=== PATIENT | female | born 1965 | race Caucasian/White ===

== ENCOUNTER → 2019-05-14 08:30 | Outpatient (CLI) | payer OTHER, SELFPAY ==
--- NOTE | 2019-05-14 | DI.MG.S_ITS ---
BILATERAL DIGITAL SCREENING MAMMOGRAM 3D/2D WITH CAD: 05/14/2019 CLINICAL: Routine screening. Comparison is made to exams dated: 06/04/2014 mammogram, 10/05/2016 mammogram, and 05/02/2018 mammogram - [facility]. There are scattered fibroglandular elements in both breasts. Current study was also evaluated with a Computer Aided Detection (CAD) system. No significant masses, calcifications, or other findings are seen in either breast. There has been no significant interval change. IMPRESSION: NEGATIVE There is no mammographic evidence of malignancy. A 1 year screening mammogram is recommended. This exam was interpreted at Station ID: [id number]. NOTE: For mammograms, a report in lay terms will be sent to the patient. Approximately 15% of breast malignancies will not be visualized mammographically. In the management of a palpable breast mass, a negative mammogram must not discourage biopsy of a clinically suspicious lesion. Electronically Signed By: Rene steward/yovany:05/14/2019 13:12:19 letter sent: Normal Exam ACR BI-RADS Category 1: Negative [id number]
== END ==
PROVIDERS: PCP Family Medicine; Visit Provider Family Medicine
DX: Z12.31 Encounter for screening mammogram for malignant neoplasm of breast (principal)
CPT/HCPCS: 77063; 77067

== ENCOUNTER 2020-04-27 18:42 | Emergency (ER) | payer OTHER, SELFPAY ==
[2020-04-27 18:45] VITALS: BP 144/89; PULSE 77; RESP 20; TEMP 36.7; O2SAT 100
--- NOTE | 2020-04-27 18:49 | DI.RAD.S_ITS ---
PROCEDURE: XR ANKLE LT MIN 3V INDICATIONS: crush injury lt ankle/foot TECHNIQUE: 3 views of the ankle were acquired. COMPARISON: [facility], CR, XR FOOT LT MIN 3V, 04/27/2020, 18:39. FINDINGS: Bones: No fractures or dislocations. Postsurgical changes with fusion of talus and navicula. Ankle mortise is normally aligned. No suspicious bony lesions. Soft tissues: No tibiotalar joint effusion. Achilles tendon appears normal. There is a metallic artifact projecting to the heel on the lateral view, which appears outside of the left foot on frontal and oblique views. IMPRESSION: No definitive fractures. Postsurgical changes are noted. If clinical symptoms persist or clinical suspicion for pathology is high, a repeat examination in 7-10 days, or advanced imaging such as CT or MRI is suggested for further evaluation. Dictated by: Ely Hoffman M.D. on 04/27/2020 at 19:32 Approved by: Ely Hoffman M.D. on 04/27/2020 at 19:35
--- NOTE | 2020-04-27 18:49 | DI.RAD.S_ITS ---
PROCEDURE: XR FOOT LT MIN 3V INDICATIONS: crush injury lt ankle/foot TECHNIQUE: 3 views of the foot were acquired. COMPARISON: [facility], CR, XR ANKLE LT MIN 3V, 04/27/2020, 18:39. FINDINGS: Bones: No fractures or dislocations. No suspicious bony lesions. There is fusion of the talonavicular joint. There is mild degenerative joint disease at the 1st metatarsophalangeal joint. Soft tissues: No tibiotalar joint effusion. Achilles tendon appears normal. IMPRESSION: No fractures. Postsurgical changes are noted. If clinical symptoms persist or clinical suspicion for pathology is high, a repeat examination in 7-10 days, or advanced imaging such as CT or MRI is suggested for further evaluation. Dictated by: Ely Hoffman M.D. on 04/27/2020 at 19:35 Approved by: Ely Hoffman M.D. on 04/27/2020 at 19:36
[2020-04-27] MEDS: TET,DIPH,PERTUSS(ACELL),VAC/PF 0.5 ML SYRINGE IM (20:31)
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
== END 2020-04-27 20:34 | disposition home or self-care (01) ==
PROVIDERS: Emergency Provider Nurse Practitioner Family; PCP Family Medicine
DX: S96.912A Strain of unspecified muscle and tendon at ankle and foot level, left foot, initial encounter (principal); Y99.0 Civilian activity done for income or pay; Z23 Encounter for immunization
CPT/HCPCS: 73610; 73630; 90471; 99283; 99284; 90715

== ENCOUNTER → 2020-10-06 14:57 | Outpatient (CLI) | payer OTHER, SELFPAY ==
--- NOTE | 2020-10-06 15:00 | DI.ECHO.S_ITS ---
[facility]---------+ [facility] +---------+ : : [address] : : : : [id number] : : : : Phone: [phone]+ Echocardiogram Report + + :Name: SHANNON MCKINNEY Study Date: 10/06/2020 Height: 68.5 in: :[facility] ReadingLocation: Weight: 181 lb : : Gender: Female BSA: 2.0 m2 : :: 1965 Age: 54 yrs BP: 129/86 mmHg: :Reason For Study: CARDIAC MURMUR : :Ordering Physician: АЛЕКСАНДР, : :JT DUEÑAS Performed By: Deanna Chandler : :Referring: JT MONTES MD : + + Interpretation Summary The left ventricle is normal in size and wall thickness. Left ventricular ejection fraction is estimated to be 65 +/- 5%. There are no focal wall motion abnormalities. The right ventricle is normal in size and function. No significant valvular pathology seen. The IVC is of normal diameter and collapses greater than 50% with a sniff. This suggests a low right atrial pressure of 3 mm Hg. Procedure: A two-dimensional transthoracic echocardiogram with color flow and Doppler was performed. The study quality was technically adequate. The patient had an echocardiogram, but there is no comparison study available. Patient had previous echo at [facility] 11/03/2011. Patient brought in paper copy showing EF of 60% with Trace MR, TR, and AI. Non-discrete nodular thickening of non-coronary cusp. Remaining chambers and valves are normal. The patient was in sinus rhythm with heart rates between 52-69 bpm during the exam. Left Ventricle: The left ventricle is normal in size and wall thickness. There is no thrombus. Left ventricular ejection fraction is estimated to be 65 +/- 5%. There are no focal wall motion abnormalities. Diastolic parameters suggest a relaxation abnormality of the left ventricle, consistent with probable normal filling pressures. Right Ventricle: The right ventricle is normal in size and function. Atria: Both atria are normal in size. There is no Doppler evidence for an interatrial shunt. Mitral Valve: The mitral valve leaflets are slightly calcified. There is trace mitral regurgitation. Aortic Valve: The aortic valve is trileaflet. The aortic valve opens well. There is mild aortic valve sclerosis. Mild nodular thickening of all the coronary cusps along the coaptation point. There is no aortic valve stenosis. No aortic regurgitation is present. Tricuspid Valve: The tricuspid valve is normal in structure and function. There is trace tricuspid regurgitation. Pulmonary artery pressures cannot be estimated because of the lack of a measurable TR jet velocity but the IVC suggests a CVP of around 3 mmHg. Pulmonic Valve: The pulmonic valve leaflets are thin and pliable; valve motion is normal. There is a trace or physiologic amount of pulmonic regurgitation. Great Vessels: The aortic root is normal size. The ascending aorta could not be visualized. The IVC is of normal diameter and collapses greater than 50% with a sniff. This suggests a low right atrial pressure of 3 mm Hg. Pericardium/ Pleura There is no pericardial effusion. There is no pleural effusion. MMode/2D Measurements & Calculations LVIDd: 4.4 cm LVOT diam: 2.0 cm LVIDs: 2.6 cm Ao root diam: 3.0 cm FS: 41.4 % Ao Arch Diam (Prox Trans): 2.5 cm EPSS: 0.38 cm IVSd: 0.81 cm LVPWd: 0.84 cm LV robles. diameter/BSA (cm/m^2): 2.2 LV sys. diameter/BSA (cm/m^2): 1.3 LA A2 area: 21.6 cm2 RA long axis: 4.8 cm LA A4 area: 12.7 cm2 RA area: 13.8 cm2 LA length (vol): 4.3 cm RA vol: 33.6 ml LA vol: 54.8 ml RA : 17.0 ml/m2 LA vol index: 27.8 ml/m2 IVC diam: 1.5 cm RVD1 (basal): 3.2 cm TAPSE: 2.2 cm Doppler Measurements & Calculations Ao V2 max: 129.0 cm/sec LVOT Max Lino: 137.9 cm/sec Ao V2 mean: 94.5 cm/sec LV V1 max P.6 mmHg Ao max P.7 mmHg LV V1 VTI: 29.1 cm Ao mean P.9 mmHg MARY(I,D): 3.2 cm2 Ao V2 VTI: 27.3 cm MARY(V,D): 3.2 cm2 sev ratio: 1.1 MARY indexed to BSA (cm^2/m^2): 1.6 MV E max lino: 58.5 cm/sec PA V2 max: 108.8 cm/sec MV A max lino: 77.8 cm/sec PA V2 mean: 74.5 cm/sec MV E/A: 0.75 PA mean P.5 mmHg Med Peak E' Lino: 10.5 cm/sec PA pr(Accel): 15.6 mmHg E/E' med: 5.6 Lat Peak E' Lino: 14.1 cm/sec E/E' lat: 4.1 E/e' average: 4.9 MV dec time: 0.29 sec SV(LVOT): 87.8 ml Reading Physician:09:41 AM
== END ==
PROVIDERS: PCP Family Medicine; Referring Provider Family Medicine; Visit Provider Family Medicine
DX: R01.1 Cardiac murmur, unspecified (principal)
CPT/HCPCS: 93306

== ENCOUNTER → 2020-10-15 08:30 | Outpatient (CLI) | payer OTHER, SELFPAY ==
--- NOTE | 2020-10-15 | DI.MG.S_ITS ---
BILATERAL DIGITAL SCREENING MAMMOGRAM 3D/2D WITH CAD: 10/15/2020 CLINICAL: Routine screening. Comparison is made to exams dated: 05/14/2019 mammogram - [facility], 05/02/2018 mammogram, and 10/05/2016 mammogram - [facility]. There are scattered fibroglandular elements in both breasts. Current study was also evaluated with a Computer Aided Detection (CAD) system. No significant masses, calcifications, or other findings are seen in either breast. There has been no significant interval change. IMPRESSION: NEGATIVE There is no mammographic evidence of malignancy. A 1 year screening mammogram is recommended. This exam was interpreted at Station ID: [id number]. NOTE: For mammograms, a report in lay terms will be sent to the patient. Approximately 15% of breast malignancies will not be visualized mammographically. In the management of a palpable breast mass, a negative mammogram must not discourage biopsy of a clinically suspicious lesion. Electronically Signed By: Uziel gold/yovany:10/15/2020 08:59:27 letter sent: Normal Exam ACR BI-RADS Category 1: Negative 3341F
== END ==
PROVIDERS: PCP Family Medicine; Referring Provider Family Medicine; Visit Provider Family Medicine
DX: Z12.31 Encounter for screening mammogram for malignant neoplasm of breast (principal)
CPT/HCPCS: 77063; 77067

== ENCOUNTER → 2024-09-23 08:28 | Outpatient (CLI) | payer OTHER, SELFPAY ==
--- NOTE | 2024-09-23 08:30 | DI.RAD.S_ITS ---
PROCEDURE: XR CHEST 2V INDICATIONS: COUGH TECHNIQUE: 2 views of the chest were acquired. COMPARISON: None. FINDINGS: Surgical changes and devices: None. Lungs and pleura: Lungs are clear. No pleural effusions or pneumothorax. Mediastinum: Mediastinal contours are normal. Heart size is normal. Bones and chest wall: No suspicious bony abnormalities. Soft tissues appear unremarkable. IMPRESSION: No acute cardiopulmonary abnormality is seen. Dictated by: George Leung M.D. on 09/23/2024 at 13:29 Approved by: George Leung M.D. on 09/23/2024 at 13:30
== END ==
PROVIDERS: PCP Family Medicine; Referring Provider Otolaryngology; Visit Provider Otolaryngology
DX: J32.4 Chronic pansinusitis (principal); R05.3 Chronic cough; R09.82 Postnasal drip
CPT/HCPCS: 71046

== ENCOUNTER → 2025-01-29 08:00 | Outpatient (CLI) | payer OTHER, SELFPAY ==
--- NOTE | 2025-01-29 08:01 | DI.ECHO.S_ITS ---
[facility] : : [address] : : [facility] : : [place], : : [place] [address] : : Phone: [phone] Echocardiogram Report + + :Name: SHANNON MCKINNEY Study Date: 01/29/2025 Height: 68 in : :[facility] ReadingLocation: Weight: 210 lb : : Gender: Female BSA: 2.1 m2 : :: 1965 Age: 59 yrs BP: 129/95 mmHg: :Reason For Study: MURMUR : :Ordering Physician: MERY, : :KEEGAN Performed By: Griffin Walton : :Referring: UNSPECIFIED : + + Interpretation Summary 1) Normal left ventricular thickness, size, wall motion, and systolic function (EF 60-65%). 2) Normal right ventricular size and function. 3) No significant valvular abnormalities. 4) Compared to the echo done 10/06/2200, no significant change. Procedure: A two-dimensional transthoracic echocardiogram with color flow and Doppler was performed. The study quality was technically good. Comparison is made with the echocardiogram of 10/06/2020. The patient was in normal sinus rhythm during the exam. Left Ventricle: The left ventricle is normal in size. There is normal left ventricular wall thickness. There is no ventricular septal defect visualized. The ejection fraction is estimated to be 60-65%. There are no focal wall motion abnormalities. Diastolic parameters suggest a relaxation abnormality of the left ventricle, consistent with probable normal filling pressures. Right Ventricle: The right ventricle is normal in size and function. Atria: The left atrial size is normal. Right atrial size is normal. There is no Doppler evidence for an interatrial shunt. Mitral Valve: The mitral valve leaflets appear normal. There is no evidence of stenosis, fluttering, or prolapse. There is trace mitral regurgitation. Aortic Valve: The aortic valve is trileaflet. The aortic valve is mildly calcified. The aortic valve opens well. There is no aortic valve stenosis. There is trace aortic regurgitation. Tricuspid Valve: The tricuspid valve leaflets are thin and pliable. No tricuspid regurgitation. Pulmonic Valve: The pulmonic valve is not well seen, but is grossly normal. There is no pulmonic valvular regurgitation. Great Vessels: The aortic root is normal size. The dimensions of the ascending aorta are normal. The pulmonary is not well visualized. The IVC is of normal diameter and collapses greater than 50% with a sniff. This suggests a low right atrial pressure of 3 mm Hg. Pericardium/ Pleura There is no pericardial effusion. MMode/2D Measurements & Calculations LVIDd: 4.2 cm AoV Openin.7 cm LVIDs: 2.5 cm LVOT diam: 2.0 cm IVSd: 1.0 cm Ao root diam: 3.2 cm LVPWd: 0.89 cm Ao Arch Diam (Prox Trans): 1.7 cm LV robles. diameter/BSA (cm/m^2): 2.0 LV sys. diameter/BSA (cm/m^2): 1.2 FS: 40.3 % EPSS: 0.52 cm LA A2 area: 21.2 cm2 RA long axis: 4.7 cm LA A4 area: 18.9 cm2 RA area: 11.7 cm2 LA length (vol): 4.8 cm RA vol: 24.7 ml LA vol: 70.3 ml RA : 11.8 ml/m2 LA vol index: 33.7 ml/m2 RVD1 (basal): 3.1 cm IVC diam: 1.2 cm RVD2 (mid): 2.5 cm TAPSE: 2.7 cm Doppler Measurements & Calculations Ao V2 max: 134.5 cm/sec LVOT Max Lino: 113.6 cm/sec Ao V2 mean: 99.2 cm/sec LV V1 max P.2 mmHg Ao V2 VTI: 29.4 cm LV V1 VTI: 25.0 cm Ao max P.2 mmHg Ao mean P.3 mmHg MARY(I,D): 2.7 cm2 MV E max lino: 70.0 cm/sec MARY(V,D): 2.7 cm2 MV A max lino: 87.1 cm/sec MARY indexed to BSA (cm^2/m^2): 1.3 MV E/A: 0.80 sev ratio: 0.85 Med Peak E' Lino: 6.4 cm/sec E/E' med: 11.0 Lat Peak E' Lino: 8.1 cm/sec E/E' lat: 8.7 E/e' average: 9.8 MV dec time: 0.25 sec PA V2 max: 106.3 cm/sec PA V2 mean: 76.7 cm/sec PA mean P.6 mmHg PA pr(Accel): 20.8 mmHg SV(LVOT): 79.4 ml Reading Physician:10:36 AM
== END ==
LOC: ECHO 08:01
PROVIDERS: PCP Family Medicine; Referring Provider Physician Assistant; Visit Provider Physician Assistant
DX: R01.1 Cardiac murmur, unspecified (principal)
CPT/HCPCS: 93306

== ENCOUNTER 2025-03-03 17:27 | Emergency (ER) | payer OTHER, SELFPAY ==
[2025-03-03 17:31] VITALS: BP 173/98; PULSE 89; RESP 16; TEMP 37.1; O2SAT 98; BMI 31.9
--- NOTE | 2025-03-03 18:58 | ED.BACK ---
HPI - Back Pain/Injury <Ori Luevano PA-C - Last Filed: 03/03/25 19:02> General Chief Complaint: Back Pain/Injury Stated Complaint: Back pain, 3 spinal cord compression Time Seen by Provider: 03/03/25 17:51 Source: patient History of Present Illness HPI Narrative: 59-year-old female with past medical history chronic back pain presents to the ED with an acute on chronic exacerbation of her back pain. No new trauma. No new symptoms other than exacerbation of pain. Patient has some baseline numbness and paresthesias which have not changed from prior. Patient is waiting to see her doctor at [facility] on 03/10/2025. Patient has had an MRI which shows multilevel degenerative changes of the lumbar spine and spinal stenosis. No urinary hesitancy. Patient also states that she was diagnosed with a UTI recently, for which she just picked up medications today. Related Data Home Medications ?Medication ?Instructions ?Recorded ?Confirmed baclofen 10 mg tablet 10 mg PO DAILY PRN Pain (Scale 07/15/18 02/05/23 Score 4-6) cyanocobalamin (vitamin B-12) 1,000 mcg PO DAILY 07/15/18 02/05/23 1,000 mcg tablet (Vitamin B-12) ergocalciferol (vitamin D2) 1,250 50,000 unit PO QWEEK 07/15/18 02/05/23 mcg (50,000 unit) capsule (Vitamin D2) esterified 1 tab PO DAILY 07/15/18 02/05/23 estrogens-methyltestosterone 0.625 mg-1.25 mg tablet ferrous sulfate 325 mg (65 mg 325 mg PO TID 07/15/18 02/05/23 iron) tablet fluticasone propionate 50 2 spray intranasal DAILY 07/15/18 02/05/23 mcg/actuation nasal spray,suspension (Flonase Allergy Relief) furosemide 20 mg tablet (Lasix) 20 mg PO DAILY 07/15/18 02/05/23 gabapentin 800 mg tablet 600 mg PO TID 07/15/18 02/05/23 hydrochlorothiazide 25 mg tablet 25 mg PO DAILY 07/15/18 02/05/23 levothyroxine 125 mcg tablet 125 mcg PO DAILY 07/15/18 02/05/23 (Synthroid) loratadine 10 mg tablet (Claritin) 10 mg PO DAILY 07/15/18 02/05/23 sucralfate 1 gram tablet 1 g PO PRN PRN Ulcer 07/15/18 02/05/23 zolmitriptan 2.5 mg tablet (Zomig) 2.5 mg PO Q2-4H PRN Migraine 07/15/18 02/05/23 Headache Previous Rx's ?Medication ?Instructions ?Recorded oxycodone-acetaminophen 5 mg-325 1 tab PO Q8H PRN pain 3 days #10 03/03/25 mg tablet (Percocet) tabs Allergies Allergy/AdvReac Type Severity Reaction Status Date / Time cephalexin (From Keflex) Allergy Intermediate Hypertensio Verified 03/03/25 17:31 n amoxicillin (From Augmentin) Allergy Rash Verified 03/03/25 17:31 clavulanic acid (From Allergy Rash Verified 03/03/25 17:31 Augmentin) Review of Systems <Ori Luevano PA-C - Last Filed: 03/03/25 19:02> Constitutional Constitutional: Denies chills, Denies fatigue, Denies fever(s), Denies frequent falls, Denies lethargy and Denies weakness Eyes Eyes: Denies change in vision, Denies eye discharge, Denies irritation and Denies loss of vision ENT Ears, Nose, Mouth, and Throat: Denies change in voice, Denies dizziness, Denies neck pain, Denies sore throat and Denies throat swelling Cardiovascular Cardiovascular: Denies chest pain, Denies irregular heart rhythm, Denies lightheadedness, Denies palpitations, Denies dyspnea, Denies dyspnea on exertion and Denies orthopnea Respiratory Respiratory: Denies cough, Denies dyspnea, Denies dyspnea on exertion and Denies wheezing Gastrointestinal Gastrointestinal: Denies abdominal pain, Denies change in bowel habits, Denies diarrhea, Denies nausea and Denies vomiting Musculoskeletal Musculoskeletal: Reports back pain, Denies neck pain and Denies numbness Integumentary/Breasts Skin/Breast: Denies pruritus, Denies erythema, Denies rash and Denies wounds Neurologic Neurologic: Denies behavioral changes, Denies confusion, Denies dizziness, Denies frequent falls, Denies loss of vision, Denies numbness and Denies weakness Psychiatric Psychiatric: Denies anxiety, Denies behavioral changes, Denies confusion, Denies depression, Denies homicidal ideation and Denies suicidal ideation Endocrine Endocrine: Denies fatigue, Denies flushing and Denies palpitations Hematologic/Lymphatic Hematologic/Lymphatic: Denies easy bruising Allergic/Immunologic Allergic/Immunologic: Denies urticaria, Denies throat swelling and Denies wheezing Patient History <Ori Luevano PA-C - Last Filed: 03/03/25 19:02> Medical History Hypertension Allergy Reactive airway disease Anemia Hypothyroidism Surgical History H/O foot surgery Social History Smoking Status: Never smoker Smoking Status: Never smoker Exam <Ori Luevano PA-C - Last Filed: 03/03/25 19:02> Narrative Exam Narrative: Const General:?cooperative, healthy appearing and comfortable HENMT Head:?normal to inspection Ears:?hearing grossly normal bilaterally Nose:?external nose normal Face and sinus:?normal facial exam and sinuses nontender Mouth:?oral mucosae normal Throat:?posterior oropharynx normal Eyes General:?appearance normal, both eyes and all related structures Neck Neck:?normal visual inspection and no lymphadenopathy noted Resp Effort & Inspection:?normal respiratory effort Auscultation:?clear to auscultation bilaterally Cardio Rate:?regular rate Rhythm:?regular rhythm Musculoskeletal No midline tenderness to palpation. No paraspinal tenderness to palpation. Gait is normal. Neurovascularly intact. Neuro General:?patient alert, patient awake and patient oriented x3 Initial Vital Signs Initial Vital Signs: Vital Signs Temperature 98.7 F 03/03/25 17:31 Pulse Rate 89 03/03/25 17:31 Respiratory Rate 16 03/03/25 17:31 Blood Pressure 173/98 H 03/03/25 17:31 Pulse Oximetry 98 03/03/25 17:31 Oxygen Delivery Method Room Air 03/03/25 17:31 <Eduardo Leach MD - Last Filed: 03/03/25 19:10> Initial Vital Signs Initial Vital Signs: Vital Signs Temperature 98.7 F 03/03/25 17:31 Pulse Rate 89 03/03/25 17:31 Respiratory Rate 16 03/03/25 17:31 Blood Pressure 173/98 H 03/03/25 17:31 Pulse Oximetry 98 03/03/25 17:31 Oxygen Delivery Method Room Air 03/03/25 17:31 Course <Ori Luevano PA-C - Last Filed: 03/03/25 19:02> Vital Signs Vital signs: Vital Signs - 8 hr 03/03/25 17:31 Temperature 98.7 F Pulse Rate 89 Respiratory Rate 16 Blood Pressure 173/98 H Pulse Oximetry 98 Oxygen Delivery Method Room Air <Eduardo Leach MD - Last Filed: 03/03/25 19:10> Vital Signs Vital signs: Vital Signs - 8 hr 03/03/25 17:31 Temperature 98.7 F Pulse Rate 89 Respiratory Rate 16 Blood Pressure 173/98 H Pulse Oximetry 98 Oxygen Delivery Method Room Air MDM - Back Pain/Injury <Ori Luevano PA-C - Last Filed: 03/03/25 19:02> MDM Narrative Medical decision making narrative: 59-year-old female with past medical history chronic back pain presents to the ED with an acute on chronic exacerbation of her back pain. History and physical exam consistent with acute on chronic exacerbation of back pain. No new symptoms other than the exacerbation of pain. Prescribed pain medications. Patient agrees to follow-up with her specialist at [facility] next week. ED return precautions discussed with patient. Patient verbalized understanding. Medical records reviewed: Yes <Eduardo Leach MD - Last Filed: 03/03/25 19:10> [facility] Narrative Medical decision making narrative: 59-year-old female with past medical history chronic back pain presents to the ED with an acute on chronic exacerbation of her back pain. History and physical exam consistent with acute on chronic exacerbation of back pain. No new symptoms other than the exacerbation of pain. Prescribed pain medications. Patient agrees to follow-up with her specialist at [facility] next week. ED return precautions discussed with patient. Patient verbalized understanding. Medical records reviewed: Yes I was available for consult but did not actually see the patient. Discharge Plan Departure Patient Disposition: Home Clinical Impression: Back pain Qualifiers: Back pain location: low back pain Chronicity: chronic Back pain laterality: unspecified Sciatica presence: with sciatica Sciatica laterality: sciatica laterality unspecified Qualified Code(s): M54.40 - Lumbago with sciatica, unspecified side Instructions: DI for Low Back Pain Activity Restrictions/Additional Instructions: You were evaluated in the ED today for an acute exacerbation of your chronic back pain. You are being prescribed some pain medications to control this while you were able to see your ortho specialist/PCP. Return to the ED if you have worsening symptoms. Prescriptions: New oxycodone-acetaminophen [Percocet] 5-325 mg tablet 1 tab PO Q8H PRN (Reason: pain) 3 Days Qty: 10 0RF No Action gabapentin 800 mg Tablet 600 mg PO TID levothyroxine [Synthroid] 125 mcg Tablet 125 mcg PO DAILY hydrochlorothiazide 25 mg Tablet 25 mg PO DAILY furosemide [Lasix] 20 mg Tablet 20 mg PO DAILY Patient Comments: pt reports taking 25 mg qday estrogens-methyltestosterone 0.625-1.25 mg Tablet 1 tab PO DAILY sucralfate 1 gram Tablet 1 g PO PRN PRN (Reason: Ulcer) cyanocobalamin (vitamin B-12) [Vitamin B-12] 1,000 mcg Tablet 1,000 mcg PO DAILY zolmitriptan [Zomig] 2.5 mg Tablet 2.5 mg PO Q2-4H PRN (Reason: Migraine Headache) baclofen 10 mg Tablet 10 mg PO DAILY PRN (Reason: Pain (Scale Score 4-6)) ferrous sulfate 325 mg (65 mg iron) Tablet 325 mg PO TID ergocalciferol (vitamin D2) [Vitamin D2] 50,000 unit Capsule 50,000 unit PO QWEEK fluticasone propionate [Flonase Allergy Relief] 50 mcg/actuation Belva,Suspension 2 spray INTRANASAL DAILY loratadine [Claritin] 10 mg Tablet 10 mg PO DAILY Referrals: Carlos Monsivais MD [Primary Care Provider, Family Practice] Stand Alone Forms: Patient Portal/API
== END 2025-03-03 19:05 | disposition home or self-care (01) ==
PROVIDERS: Emergency Provider Student in an Organized Health Care Education/Training Program; PCP Family Medicine
DX: M54.40 Lumbago with sciatica, unspecified side (principal)
CPT/HCPCS: 99281